=== PATIENT | female | born 1995 | race Caucasian/White ===

== ENCOUNTER 2021-10-24 19:39 | Emergency (ER) | payer SELFPAY ==
--- NOTE | 2021-10-24 20:45 | NUR ---
Patient was called to be triaged but was not present in the waiting room or outisde of ER.
--- NOTE | 2021-10-24 21:10 | NUR ---
Patient was called to be triaged but was not present in the waiting room or outside of ER. PSTIENT WAS NOT TRIAGED OR SEEM BY [facility]MD.
== END 2021-10-24 21:10 | disposition left against medical advice (07) ==
LOC: ER 19:46
DX: Z53.21 Procedure and treatment not carried out due to patient leaving prior to being seen by health care provider (principal)